=== PATIENT | female | born 1980 | race Caucasian/White ===

== ENCOUNTER 2018-09-17 16:59 | Emergency (ER) | payer OTHER ==
[~2018-09-17] VITALS: Ht 170.2 cm; Wt 86.1 kg
[2018-09-17 17:08] VITALS: BP 133/85
--- NOTE | 2018-09-17 17:24 | NUR ---
XR at bedside.
--- NOTE | 2018-09-17 18:00 | NUR ---
EDT at bedside for splint.
--- NOTE | 2018-09-17 18:36 | NUR ---
Patient/Caregiver given discharge instructions and they have confirmed that they understand the instructions. Patient ambulatory with steady gait.
== END 2018-09-17 18:37 | disposition home or self-care (01) ==
LOC: ED 18:27
DX: S63.522A Sprain of radiocarpal joint of left wrist, initial encounter (principal); S39.012A Strain of muscle, fascia and tendon of lower back, initial encounter; S60.211A Contusion of right wrist, initial encounter; Z87.891 Personal history of nicotine dependence; W01.0XXA Fall on same level from slipping, tripping and stumbling without subsequent striking against object, initial encounter; Y93.01 Activity, walking, marching and hiking; Y92.59 Other trade areas as the place of occurrence of the external cause; Y99.8 Other external cause status
CPT/HCPCS: 29125; 72110; 99283